=== PATIENT | female | born 1990 | race Caucasian/White ===

== ENCOUNTER 2024-06-23 15:04 | Emergency (ER) | payer OTHER ==
[2024-06-23 15:48] VITALS: BP 127/80; PULSE 64; RESP 18; TEMP 98.4; BMI 28.3
[2024-06-23] MEDS: FAMOTIDINE 20 MG TABLET PO ONE (16:26)
[2024-06-23] MEDS ORDERED: FAMOTIDINE 20 MG TABLET ONE (16:27)
== END 2024-06-23 17:20 | disposition home or self-care (01) ==
LOC: JER 15:04 → JERFT 15:04
DX: R07.0 Pain in throat (principal); T78.1XXA Other adverse food reactions, not elsewhere classified, initial encounter
CPT/HCPCS: 99283-25